=== PATIENT | male | born 1975 | race Caucasian/White ===

== ENCOUNTER 2024-11-16 06:24 | Day surgery (SDC) | payer BC, SELFPAY | END 2024-11-16 15:13 | disposition home or self-care (01) | LOC: GI 06:24 | PROVIDERS: ATTENDING PHYSICIAN Internal Medicine; FAMILY PHYSICIAN Nurse Practitioner Family | DX: Z12.11 Encounter for screening for malignant neoplasm of colon (principal); K64.8 Other hemorrhoids; D64.9 Anemia, unspecified; I85.00 Esophageal varices without bleeding; K92.1 Melena; K44.9 Diaphragmatic hernia without obstruction or gangrene; K29.80 Duodenitis without bleeding; K22.89 Other specified disease of esophagus; K31.89 Other diseases of stomach and duodenum; D12.5 Benign neoplasm of sigmoid colon; D12.8 Benign neoplasm of rectum; K22.70 Barrett's esophagus without dysplasia; K29.50 Unspecified chronic gastritis without bleeding; K31.A0 Gastric intestinal metaplasia, unspecified | CPT/HCPCS: 45385; 45380; 43239; 88305; 88342 ==

== ENCOUNTER → 2024-12-01 12:53 | Outpatient (REF) | payer BC, SELFPAY | LOC: HWRAD 12:53 | PROVIDERS: ATTENDING PHYSICIAN Internal Medicine; FAMILY PHYSICIAN Nurse Practitioner Family; REFERRING PHYSICIAN Internal Medicine Hematology & Oncology | DX: R74.8 Abnormal levels of other serum enzymes (principal); F10.10 Alcohol abuse, uncomplicated; D64.9 Anemia, unspecified; R79.9 Abnormal finding of blood chemistry, unspecified; D53.9 Nutritional anemia, unspecified | CPT/HCPCS: 76700 ==

== ENCOUNTER 2024-12-13 06:30 | Day surgery (SDC) | payer BC, SELFPAY ==
[2024-12-13 08:37] VITALS: BP 133/81
[2024-12-13 08:46] VITALS: BMI 22.9
[2024-12-13] MEDS: NORMOSOL-R/PLASMALYTE-A 1000 IV (08:49)
[2024-12-13] MEDS: CELEBREX 200 MG PO (08:49)
[2024-12-13] MEDS: TYLENOL 1000 MG PO (08:49)
[2024-12-13] MEDS: LYRICA 150 MG PO (08:49)
[2024-12-13 09:52] LABS: INR 1.04; PT 14.2 Sec (11.4-14.6)
[2024-12-13 09:53] LABS: APTT 31.9 Sec (23.4-35.0)
[2024-12-13 11:32] VITALS: BP 112/71
[2024-12-13 11:46] VITALS: BP 128/84
[2024-12-13 12:00] VITALS: BP 102/83
[2024-12-13 12:15] VITALS: BP 126/60
[2024-12-13 12:30] VITALS: BP 130/81
--- NOTE | 2024-12-13 14:46 | W.IMMPOSTOP ---
Addendum entered and electronically signed by Omar Jett MD 12/13/24 14:50:
updated patient in recovery room
Original Note:
Surgical Immed Post Op Note
-
Primary Surgeon: Omar Jett MD
Assisting Surgeon: None
Pre-op Diagnosis: Symptomatic internal hemorrhoids
Post-op Diagnosis: Symptomatic internal hemorrhoids
Procedure Performed: Closed hemorrhoidectomy x 1, hemorrhoidopexy x 2, suture ligation of internal hemorrhoid x 1, bilateral pudendal nerve block
Anesthesia Type: Sedation with spinal and local
Specimen / Cultures: Right anterior internal hemorrhoid
Estimated Blood Loss: 10 mL
Complications: None
Operative Findings: Partially prolapsing internal hemorrhoid in the right anterior position with skin tag and external component, performed closed hemorrhoidectomy; small to moderate internal hemorrhoid in the right posterior position, performed
hemorrhoidopexy; small left lateral internal hemorrhoid, performed hemorrhoidopexy; small left posterolateral internal hemorrhoid, performed suture ligation
--- NOTE | 2024-12-13 14:50 | OR.RPT ---
Operative Report
Operative Report
DATE OF OPERATION: 12/13/2024
SURGEON: Omar Jett MD
PREOPERATIVE DIAGNOSIS: Symptomatic internal hemorrhoids with prolapse
POSTOPERATIVE DIAGNOSIS: Symptomatic internal hemorrhoids with prolapse
OPERATION: Exam under anesthesia, closed hemorrhoidectomy x 1, suture hemorrhoidopexy x 2, suture ligation of internal hemorrhoid x 1, bilateral pudendal nerve block
ASSISTANTS:
1. None
ANESTHESIA: MAC w/ local and spinal
ESTIMATED BLOOD LOSS: 10 mL
FINDINGS:
1. Partially-prolapsing internal hemorrhoid in the right anterior quadrant associated with skin tag and external component; performed closed hemorrhoidectomy
2. Performed suture hemorrhoidopexy for right posterior and left lateral internal hemorrhoids
3. Small internal hemorrhoid in the left posterior lateral position; performed suture ligation
SPECIMENS:
1. Right anterior internal hemorrhoid
DRAINS: N/A
COMPLICATIONS: None
INDICATIONS: The patient is a 49-year-old male who developed avascular necrosis of his hip and is awaiting corrective surgery. During his workup, he was identified to have anemia and was recommended to have his hemorrhoids treated. I did explain
that hemorrhoids rarely cause anemia. However, his hemorrhoids were symptomatic and prolapsing. After a trial of nonoperative measures, his symptoms persisted. Therefore, I recommended surgery. I explained that a suture hemorrhoidopexy would be
the plan for any concerning internal hemorrhoids. However, if a hemorrhoid is too large for a suture hemorrhoidopexy, I would perform an excisional hemorrhoidectomy. The operation was discussed with the patient in detail, including the risks,
benefits and alternatives. Risks described included, but not limited to, bleeding, infection, urinary retention, damage to nearby structures such as the anal sphincter, fecal incontinence, anal stenosis, recurrence, and anesthetic risks. The patient
understood and agreed to proceed. The consent was signed and placed in the chart.
PROCEDURE IN DETAIL: The patient was taken to the operating room. Sequential compression devices were placed bilaterally. On the bed, anesthesia performed a spinal block. The patient was placed on the operating table in prone position. Sedation
was commenced without complication. Two seat belts were secured around the legs and upper back. The buttocks were taped apart. The perineum was shaved, prepped and draped in the usual fashion. A time-out was performed verifying the correct
patient, procedure, operative site, positioning, and special equipment.
Local anesthesia used was a mixture of 30 mL of 0.25% Marcaine with epinephrine, 30mL of 1% lidocaine plain and 0.6 mg of dexamethasone. 40 mL was injected perianally at the beginning of the case. The anorectal exam was performed assessing all four
quadrants of the anal canal using Hill-Gunter retractors in progressively increasing size. There was a skin tag associated with external hemorrhoid in the right anterior position. This was in the same column as an internal hemorrhoid that
demonstrates partial prolapse on withdrawal of the anoscope. There was a small to moderate internal hemorrhoid in the right posterior position without irritation or bleeding. There were 2 small internal hemorrhoids in the lateral position without
irritation or bleeding. There were no masses or proctitis.
Due to the prolapsing nature and external component, I elected to proceed with an excisional hemorrhoidectomy for the right anterior hemorrhoid. I began by grasping the hemorrhoid with 3 clamps and elevating it. The anoderm was incised immediately
around the distal aspect of the hemorrhoid. Hemostasis was achieved with electrocautery. Using Metzenbaum scissors, the hemorrhoid was carefully dissected off of the sphincter complex avoiding injury to it. A large curved clamp was placed under
the hemorrhoid, taking care to avoid clamping any sphincter. A 15 blade was used to excise the hemorrhoid off the clamp. The hemorrhoid was passed off for specimen. A 2-0 Vicryl was thrown around the pedicle and tied down, leaving a long tail.
The mucosa was reapproximated using this 2-0 Vicryl in a running fashion to the level of the dentate line. This was then run back to the pedicle in a locking fashion. The 2-0 Vicryl was tied down to the tail around the pedicle, ligating it a third
time. Another 2-0 Vicryl was used to close the defect of the anoderm in a running fashion. Hemostasis was confirmed.
I elected to proceed with suture ligation and hemorrhoidopexy of the right posterior and left lateral internal hemorrhoids. Using a Hill-Gunter retractor, the hemorrhoid was exposed. I ligated the pedicle of the hemorrhoid with a 2-0 Vicryl in a
figure-of-8 fashion, leaving the tail long. I took running mucosal bites of the hemorrhoid distally toward the dentate line, stopping 1 cm above the dentate line. I tied this down to the long tail in order to pexy the hemorrhoid. Hemostasis was
confirmed. The other hemorrhoid was ligated and pexied in a similar fashion.
For the remaining small left posterolateral internal hemorrhoid, I elected to proceed with suture ligation. I placed a [id number] 2-0 Vicryl stitch across the hemorrhoid. Hemostasis was confirmed.
The anal canal was irrigated copiously with saline, checking for hemostasis, which was ensured. The remaining 20 mL of local were injected. 5 mL was injected bilaterally for a pudendal nerve block. 10 mL was injected around the surgical site and
perianally. The smallest Hill-Gunter was used to check hemostasis once more, which was confirmed. Surgicel was placed in the anal canal prophylactically.
At this point, the procedure was complete. All needle, sponge and instrument counts were correct. The patient tolerated the procedure well and was transferred to the recovery room in stable condition with gauze dressing in place secured with silk
tape.
DICTATED BY: Omar Jett MD
== END 2024-12-13 12:53 | disposition home or self-care (01) ==
LOC: SDS 06:30
PROVIDERS: Student in an Organized Health Care Education/Training Program; ATTENDING PHYSICIAN Surgery
DX: K64.8 Other hemorrhoids (principal)
CPT/HCPCS: 46945; 85610; 85730; 88304

== ENCOUNTER 2025-01-23 06:11 | Day surgery (SDC) | payer BC, SELFPAY ==
[2025-01-23 12:55] VITALS: BMI 23.4
[2025-01-23 13:15] VITALS: BP 128/70
[2025-01-23 13:17] VITALS: BMI 23.4
== END 2025-01-23 16:20 | disposition home or self-care (01) ==
LOC: GI 06:11
PROVIDERS: ATTENDING PHYSICIAN Internal Medicine Gastroenterology
DX: K22.70 Barrett's esophagus without dysplasia (principal); K22.89 Other specified disease of esophagus; K31.A0 Gastric intestinal metaplasia, unspecified; K86.9 Disease of pancreas, unspecified; R93.3 Abnormal findings on diagnostic imaging of other parts of digestive tract; Z87.19 Personal history of other diseases of the digestive system
CPT/HCPCS: 43254; 88305

== ENCOUNTER 2025-03-01 06:17 | Day surgery (SDC) | payer BC, SELFPAY ==
[2024-09-18 14:51] LABS: Hematocrit 46.4 % (39.0-52.0); Hemoglobin 16.3 g/dL (13.0-18.0); Mean Corp Hgb Conc. 35.1 g/dL (33.0-37.0); Mean Corpuscular Volume 93.7 fL (80.0-94.0); Platelet Count 293 10^3/uL (130-400); Red Cell Dist. Width 14.1 % (11.5-14.5)
[2024-09-18 16:13] LABS: ALT (SGPT) 273 U/L (0-50); AST (SGOT) 382 U/L (17-59); Albumin 4.3 g/dl (3.5-5.0); Alkaline Phosphatase 94 U/L (38-126); Blood Urea Nitrogen 18 mg/dl (9-20); Calcium 8.9 mg/dl (8.4-10.2); Carbon Dioxide 24 mmol/L (22-30); Chloride 100 mmol/L (98-107); Glucose 185 mg/dl (70-99); Potassium 5.2 mmol/L (3.5-5.1); Sodium 136 mmol/L (135-145); Total Protein 6.0 g/dl (6.3-8.2); eGFR > 60.00
[2024-09-19 08:20] LABS: Glycohemoglobin (HgbA1c) 6.2 % (4.0-5.6)
[2024-09-19 09:07] VITALS: BMI 21.0
[2024-09-19 09:08] VITALS: BMI 21.0
--- NOTE | 2024-09-20 09:28 | VNURNOTE ---
Addendum entered by Claudine Arango RN 09/26/24 11:57:
Noted that surgery rescheduled to Oct 7. PM [facility] Intake dept updated.
Original Note:
Patient is scheduled for an elective R RACIEL on 10/03 - he is a same day patient with Dr Ryan. Spoke with patient prior to surgery. Introduced role of [facility] Liaison. Patient reports that he lives alone. His parents live next door.
He will obtain a hip kit and will use his mom's rolling walker. He stated she does not use it anymore.
PCP is Simona Mckeon
Discussed [facility] joint protocol and post surgical plans.
Reviewed that he will have VN services initially and will then start outpatient PT.
Patient selects [facility] for his home care needs and will go to Ambulatory center at for outpatient PT. Has not been scheduled yet. Advised to schedule it for the end of the surgical week/ 10/06.
Patient is in agreement with plan and states that his parents will be home with him. Advised to bring RW with him day of surgery. Referral placed in [facility].
Plan: [facility] per [facility] joint protocol 10/03 then outpt PT TBD
--- NOTE | 2024-10-17 11:07 | HPS.HSE ---
Family Physician
-
Family Physician: AZAEL Tracy
Chief Complaint
-
Avascular necrosis of right femoral head. Same-day surgery.
History of Present Illness
The patient is a 49-year-old male presenting today for avascular necrosis of the right femoral head. The patient reports significant right hip pain and instability secondary to this diagnosis. He notes that his current right hip symptoms
are greatly interfering with his activities of daily living and are overall impacting his quality of life. He has tried and failed multiple conservative treatment measures in the past for his right hip symptoms. These conservative treatment measures
include activity modification, self-directed therapeutic exercises, physical therapy, medical management with Tylenol and NSAIDs, and the application of ice and/or heat. Recent x-ray findings of the right hip demonstrated signs of osteonecrosis. He
was determined to be in need of a right total hip arthroplasty. He denies any current complaints today such as chest pain, shortness of breath, palpitations, nausea, vomiting, diarrhea, lightheadedness, dizziness, sore throat, or fever.
Medical History
Past Medical History
Past Medical History: Reports Other
Additional Past Medical History:
1. Avascular necrosis of the right femoral head.
2. PAC's, asymptomatic.
3. Chronic cough.
4. Non-insulin dependent diabetes, diet controlled, A1c 6.2.
5. GERD.
6. Hiatal hernia.
7. Esophageal varices, 18 years ago, with associated anemia, status post blood transfusion.
8. History of recurrent GI ulcers.
9. Fatty liver disease with elevated transaminases.
10. History of recurrent pancreatitis, last episode 2 years ago.
11. Hemorrhoids with intermittent rectal bleeding.
12. Peripheral neuropathy.
13. Multilevel degenerative disc disease.
14. New-onset anemia.
15. Anxiety.
16. Depression.
17. Insomnia.
18. History of recent tobacco abuse.
19. Alcohol abuse, on Naltrexone.
Past Surgical History: Reports Other
Additional Past Surgical History:
1. Right C7-T1 foraminotomy.
2. Left wrist cyst excision.
3. Oral surgery.
Social History
Tobacco: Former Smoker (He is a former one pack per day cigarette smoker who quit tobacco products altogether in early August 2024. )
Alcohol: Other (He does have a history of alcohol abuse, with his last known alcohol being 'a few days ago.' He is on Naltrexone. )
Living: Alone (in a 2nd floor apartment independently. He reportedly has 1 step into his complex and 9 stairs up to the 2nd floor. His parents who live close by will be helping him post-procedure. He is aware that someone will need to stay with him
continuously for the first 24 hours after his surgery. )
Family History
Family History: Not pertinent
Allergies / Home Medications
Allergy/Medication List:
HOME MEDICATIONS:
1. Acetaminophen 1000 mg p.o. three times a day.
2. Bupropion 300 mg p.o. daily.
3. Glucosamine one capsule p.o. twice a day.
4. Ibuprofen 400 mg p.o. every 6 hours as needed.
5. Multivitamin one tablet p.o. daily.
6. Naltrexone 50 mg p.o. daily.
7. Sertraline 50 mg p.o. daily.
8. Hydroxyzine pamoate 25 mg p.o. at bedtime.
ALLERGIES: No known allergies.
Review of Systems
-
A 12 point ROS was completed and negative except as noted: Yes
Physical Exam
Vital Signs
Blood pressure 122/80. Heart rate 74. Respirations 18. Pulse ox 100% on room air.
Height 5 feet, 5 inches, Weight 60.8 kg, BMI 21.0.
Physical Exam
General: Well Developed, Well Nourished and No Apparent Distress
HEENT: NormoCephalic, Moist mucous membranes, Atraumatic and PERRLA
Respiratory: Clear
Cardiac: Regular Rhythm
GI: Soft, Non Tender and Non Distended
Musculoskeletal: Other (Right hip and lower extremity: resistive active motion of the hip is 4+/5, passive abduction or adduction is pain free, posterior trochanteric region is tender to palpation. Passive range of motion is mildly painful in groin
to thigh. Stinchfield's exam is mildly painful. Log roll is pain free.)
Skin: Warm and Dry
Neuro: AO x 3 and Nonfocal/grossly intact
Laboratory Results
-
DIAGNOSTIC STUDIES as of 10/17/2024: White blood cell count 7.7. Hemoglobin 11.1. Platelet count 192,000. Sodium 136. Potassium 4.7. BUN 26. Creatinine 0.7. Glucose 170. Hemoglobin A1c 6.2. Calcium 8.9. AST 66. ALT 86. Albumin 3.8. Blood type B
positive. MRSA screen negative.
EKG 09/18/2024: Normal sinus rhythm. Septal infarct pattern.
Impression/Plan
-
CLEARANCES:
1. Primary medical, AZAEL Holt, pending.
Primary medical phone number: [phone].
2. Cardiology, Dr. Ward Ferris, cleared.
3. Gastroenterology per primary care, pending.
4. Dental pending.
IMPRESSION/PLAN:
1. Avascular necrosis of the right hip in need of a right total hip arthroplasty by Dr. Neo Ryan on 11/02/2024. The benefits and risks of the procedure have been explained to the patient. The patient understands these risks and wishes to
proceed.
2. Deep vein thrombosis prophylaxis: Aspirin 81 mg p.o. twice a day and bilateral venous compression devices. Aspirin dosing has been reduced due to the patient's history of recurrent GI ulcers. Daily Protonix will be prescribed in the hopes of
preventing ulcers while on Aspirin therapy.
3. History of alcohol abuse: The patient does take Naltrexone daily due to this. This will be held 72 hours prior to his procedure per his prescriber. He will not resume this medication until off all post-surgical narcotics.
4. Fatty liver disease with elevated transaminases: The minimization of alcohol and Tylenol were discussed pre-operatively given this diagnosis.
5. Elevated infection risk: The patient is considered to be at an elevated risk of post-surgical infection due to his recent tobacco history. He was applauded on his efforts in quitting tobacco prior to his surgery. He will be prescribed Cefadroxil
post-surgery for continued joint prophylaxis. Probiotic use will be highly encouraged while on this antibiotic.
6. Post-operative bowel regimen: The patient will purchase Colace and Senokot for post-surgical use. These will be taken twice a day post-procedure, regardless of oral intake, until he is having regular bowel movements. Adequate hydration, the
minimization of opioids, and early mobility as tolerated were also discussed pre-operatively.
Patient's phone number: [phone].
Patient's contact (Thee Yeager - Father): [phone].
The patient's procedure will be postponed due to new-onset anemia. His hemoglobin dropped from 16.3 in August 2024 to now 11.1. Per primary care, he will need gastroenterology work-up and clearance prior to proceeding with his right total hip
arthroplasty. He has called to make an appointment. Of note, he was advised by primary in July 2024 to schedule a colonoscopy. Unfortunately, the patient never followed through with this request.
[2024-10-17 11:42] LABS: Hematocrit 34.2 % (39.0-52.0); Hemoglobin 11.1 g/dL (13.0-18.0); Mean Corp Hgb Conc. 32.5 g/dL (33.0-37.0); Mean Corpuscular Volume 100.9 fL (80.0-94.0); Platelet Count 192 10^3/uL (130-400); Red Cell Dist. Width 16.4 % (11.5-14.5)
[2024-10-17 12:09] LABS: ALT (SGPT) 86 U/L (0-50); AST (SGOT) 66 U/L (17-59); Albumin 3.8 g/dl (3.5-5.0); Alkaline Phosphatase 203 U/L (38-126); Blood Urea Nitrogen 26 mg/dl (9-20); Calcium 8.9 mg/dl (8.4-10.2); Carbon Dioxide 25 mmol/L (22-30); Chloride 106 mmol/L (98-107); Estimated Creatinine Clearance 111 ml/min; Glucose 170 mg/dl (70-99); Potassium 4.7 mmol/L (3.5-5.1); Sodium 136 mmol/L (135-145); Total Protein 5.7 g/dl (6.3-8.2); eGFR > 60.00
--- NOTE | 2024-10-17 13:16 | CM ---
CM reviewed medical records. CM spoke with patient via live telephone. Patient does not have a history of VN or SNF. Patient has crutches for ambulation. Patient is active with his PCP. Patient has medication coverage. Patient's family will provide
support post operatively.
PLAN: home SDS, with [facility].
[2024-10-18 15:49] VITALS: BMI 21.0
--- NOTE | 2024-11-01 11:32 | VNURNOTE ---
Addendum entered by Claudine Arango RN 02/08/25 15:20:
Chart reviewed. Patient's SDS surgery re-scheduled for Mar 01. PM-[facility] Intake updated. Referral in [facility] updated.
Original Note:
Chart reviewed. Patient's SDS surgery re-scheduled for Nov 30. PM-[facility] Intake updated.
--- NOTE | 2024-12-13 11:39 | W.IMMPOSTOP ---
Addendum entered and electronically signed by Omar Jett MD 12/13/24 14:49:
disregard this note, entered in wrong acct#
Addendum entered and electronically signed by Omar Jett MD 12/13/24 13:20:
Updated patient in recovery room
Original Note:
Surgical Immed Post Op Note
-
Primary Surgeon: Omar Jett MD
Assisting Surgeon: None
Pre-op Diagnosis: symptomatic internal hemorrhoids
Post-op Diagnosis: symptomatic internal hemorrhoids
Procedure Performed: closed hemorrhoidectomy x1, hemorrhoidopexy x2, suture ligation of internal hemorrhoid x1, b/l pudendal nerve block
Anesthesia Type: Spinal with sedation and local
Specimen / Cultures: Right anterior internal hemorrhoid
Estimated Blood Loss: 10mL
Complications: none
Operative Findings: partially prolapsing internal hemorrhoid in the right anterior position with skin tag and external component, performed closed hemorrhoidectomy; small to moderate internal hemorrhoid in the right posterior position, performed
hemorrhoidopexy; small left lateral internal hemorrhoid, performed hemorrhoidopexy; small left posterolateral internal hemorrhoid, performed suture ligation
[2025-02-08 14:01] VITALS: BMI 23.4
[2025-02-08 14:34] LABS: Hematocrit 37.6 % (39.0-52.0); Hemoglobin 12.4 g/dL (13.0-18.0); Mean Corp Hgb Conc. 33.0 g/dL (33.0-37.0); Mean Corpuscular Volume 86.4 fL (80.0-94.0); Platelet Count 228 10^3/uL (130-400); Red Cell Dist. Width 14.7 % (11.5-14.5)
[2025-02-08 14:52] VITALS: BMI 23.4
[2025-02-08 15:37] LABS: ALT (SGPT) 59 U/L (0-50); AST (SGOT) 39 U/L (17-59); Albumin 4.6 g/dl (3.5-5.0); Alkaline Phosphatase 93 U/L (38-126); Blood Urea Nitrogen 12 mg/dl (9-20); Calcium 10.0 mg/dl (8.4-10.2); Carbon Dioxide 23 mmol/L (22-30); Chloride 102 mmol/L (98-107); Estimated Creatinine Clearance > 125 ml/min; Glucose 288 mg/dl (70-99); Potassium 4.7 mmol/L (3.5-5.1); Sodium 134 mmol/L (135-145); Total Protein 6.9 g/dl (6.3-8.2); eGFR > 60.00
[2025-02-09 09:20] LABS: Glycohemoglobin (HgbA1c) 7.7 % (4.0-5.9)
--- NOTE | 2025-02-09 14:26 | CM ---
Addendum entered by Lani Steven RN 02/09/25 14:28:
Confirmed visit address as:
[address] [place] [address]
[address]
[place] [address]
Original Note:
Demographics: lives in an apartment
Living situation: Lives in an apartment, father is available for support
Support Person Post Operatively:Father
History of
VN: No
SNF: No
Outpatient: [facility] appointment made for 03/05
Has patient purchased required equipment: yes
PCP: Linda
Pharmacy: [facility]
Post Operative Discharge Plan: SDS, with VN
[2025-03-01] VITALS (15 sets, daily range): BP systolic 118–156; BP diastolic 68–92; PULSE 72; O2SAT 98
[2025-03-01] MEDS: TYLENOL 650 MG PO (09:16)
[2025-03-01] MEDS: CELEBREX 200 MG PO (09:17)
[2025-03-01] MEDS: NORMOSOL-R/PLASMALYTE-A 1000 IV (09:20)
[2025-03-01 10:58] LABS: Glucose - Point of Care 112 mg/dl (70-99)
--- NOTE | 2025-03-01 12:18 | W.DS.TRANS ---
DC Summary - Senior Case Manager
-
Discharge Instructions:
Sleep Apnea Risk Intermediate
Discharge Diagnosis/Procedures Avascular necrosis of right femoral head s/p
right RACIEL w/ Dr Ryan 03/01/25
Diet Diabetic, Carb Controlled
Additional Diets Adequate hydration, minimize opioids, and wear
TEDs stockings to prevent low blood pressure/
dizziness.
Activity As tolerated,With Walker
Driving Restrictions Not until seen by your Dr
Bathing Restrictions OK to Shower
Other Services PT,VN
Wound Care Leave dressing on until seen by surgeon's office
for follow-up.
Instructions:
Stand-Alone Forms: SDS Total Hip and Knee D/C
Changes to Home Medications: Yes
Discharge Medications:
DC Medications w/original date entered in [employer]
acetaminophen 500 mg capsule 1,000 mg PO TID PRN Pain 03/09/22
bupropion HCl 300 mg 24 hr tablet, extended release 300 mg PO DAILY 09/15/24
sertraline 50 mg tablet 75 mg PO DAILY 09/15/24
hydroxyzine pamoate 25 mg capsule 25 mg PO HS 10/17/24
potassium 1 cap PO DAILY 12/07/24
trazodone 50 mg tablet 50 mg PO PRN PRN pain 12/07/24
pantoprazole 40 mg tablet,delayed release 40 mg PO DAILY 01/23/25
Benefiber (guar gum) 1 unit PO HS 02/06/25
Glucosamine Msm 1 tab PO DAILY 02/06/25
Held on 03/01/25. Instructions: Resume on 03/09/25.
Protein Smoothie 1 unit PO DAILY 02/06/25
Super C With Vit D And Zinc 1 tab PO DAILY 02/06/25
magnesium 1 tab PO DAILY 02/06/25
multivitamin 1 tab PO DAILY 02/06/25
Held on 03/01/25. Instructions: Resume on 03/09/25.
vitamin B complex 1 tab PO DAILY 02/06/25
cefadroxil 500 mg capsule 500 mg PO BID #14 caps 02/08/25
celecoxib 100 mg capsule (Celebrex) 100 mg PO DAILY PRN breakthrough pain #10 caps 02/08/25
ondansetron HCl 4 mg tablet 4 mg PO Q6H PRN nausea and vomiting #30 tabs 02/08/25
oxycodone 5 mg tablet 5 - 10 mg (1 - 2 x 5 mg) PO Q6H PRN moderate-severe pain #30 tabs 02/08/25
pregabalin 75 mg capsule 75 mg PO BID nerve pain #15 caps 02/08/25
metformin 500 mg tablet 500 mg PO QPM 02/19/25
Saccharomyces boulardii 250 mg capsule (Florastor) 250 mg PO BID #1 cap 03/01/25
aspirin 81 mg tablet 81 mg PO BID Blood clot prevention/tx #1 tab 03/01/25
docusate sodium 100 mg capsule (Colace) 100 mg PO BID stool softner #1 cap 03/01/25
magnesium hydroxide 400 mg/5 mL oral suspension (Milk of Magnesia) 30 ml PO HS PRN constipation #1 mL 03/01/25
sennosides 8.6 mg tablet (Senokot) 17.2 mg (2 x 8.6 mg) PO BID laxative #2 tabs 03/01/25
Home Medication Changes
cefadroxil 500 mg capsule 500 mg PO BID #14 caps 02/08/25
celecoxib 100 mg capsule (Celebrex) 100 mg PO DAILY PRN breakthrough pain #10 caps 02/08/25
ondansetron HCl 4 mg tablet 4 mg PO Q6H PRN nausea and vomiting #30 tabs 02/08/25
oxycodone 5 mg tablet 5 - 10 mg (1 - 2 x 5 mg) PO Q6H PRN moderate-severe pain #30 tabs 02/08/25
pregabalin 75 mg capsule 75 mg PO BID nerve pain #15 caps 02/08/25
metformin 500 mg tablet 500 mg PO QPM 02/19/25
Saccharomyces boulardii 250 mg capsule (Florastor) 250 mg PO BID #1 cap 03/01/25
aspirin 81 mg tablet 81 mg PO BID Blood clot prevention/tx #1 tab 03/01/25
docusate sodium 100 mg capsule (Colace) 100 mg PO BID stool softner #1 cap 03/01/25
magnesium hydroxide 400 mg/5 mL oral suspension (Milk of Magnesia) 30 ml PO HS PRN constipation #1 mL 03/01/25
sennosides 8.6 mg tablet (Senokot) 17.2 mg (2 x 8.6 mg) PO BID laxative #2 tabs 03/01/25
Pending Results: No
[2025-03-01 13:05] LABS: Glucose - Point of Care 135 mg/dl (70-99)
[2025-03-01 14:50] LABS: Glucose - Point of Care 227 mg/dl (70-99)
[2025-03-01] MEDS: TYLENOL 1000 MG PO (15:21)
[2025-03-01] MEDS: ANCEF 5 IV (15:22)
[2025-03-01] MEDS: ROXICODONE 5 MG PO (15:33)
--- NOTE | 2025-03-01 16:53 | OR.RPT ---
Operative Report
Operative Report
Orthopaedic Surgery Operative Note
DATE OF OPERATION: 03/01/2025
PREOPERATIVE DIAGNOSES: Osteonecrosis, right hip
POSTOPERATIVE DIAGNOSES: Same
OPERATION PERFORMED: Right total hip arthroplasty.
SURGEON: Neo Ryan MD
ANGIOGRAPHER: Thomas Corral PA-C who assisted with patient positioning and retraction
ANESTHESIA: Spinal
COMPLICATIONS: None.
ESTIMATED BLOOD LOSS: 50 mL.
DRAINS: None
SPECIMEN: None
FINDINGS: Advanced articular cartilage wear on the femoral head and acetabulum.
IMPLANTS:
Biomet G7 Acetabular Shell, cluster hole, size 54
Biomet G7 Highly Crosslinked PE Liner, neutral
Alex M/L Taper femoral stem, size 12.5 with reduced neck length and standard offset
Biolox Ceramic Head, size 40mm +0
INDICATIONS: The patient presented to my office with debilitating right hip pain due to osteonecrosis of femoral head. We reviewed the natural history of this problem, as well as the risks, benefits, and alternatives of various treatment options.
The patient exhausted all nonoperative treatment options and wished to proceed with hip replacement surgery. The patient understood the risks which included, but were not limited to, bleeding, infection, failure to relieve pain, more pain than
preop, damage to blood vessels and nerves, need for reoperation, mechanical failure of the implants, wound healing problems, stiffness, instability, blood clot, pulmonary embolism, myocardial infarction, pneumonia, arrhythmia, CVA, and . The
patient accepted these risks and wished to proceed. All questions were answered, and informed consent was obtained.
PROCEDURE IN DETAIL: The patient was identified in the preoperative holding area. The right hip was identified as the operative site. The patient was taken in the operating room and transferred to the operative table. Spinal anesthesia was
performed. IV antibiotics and tranexamic acid were administered. The patient was placed in the lateral position with Stulberg hip positioners. Axillary roll was placed. The down leg was well padded. All bony prominences were well padded. The
operative limb was prepped and draped in the usual sterile fashion.
Time out was performed. A posterolateral approach to the hip was used. The skin incision was centered over the greater trochanter. This was taken down sharply through subcutaneous tissues. Meticulous hemostasis was achieved throughout the case with
electrocautery. We split the fascia robin in line with skin incision. I split the gluteus marty bluntly. We cauterized all crossing vessels as we split it. I palpated the sciatic nerve and made sure it was well posterior in the operative field. It
was protected throughout the case.
I performed a partial bursectomy to identify the short external rotators. The gluteus medius and minimus were identified and retracted anteriorly. I incised the piriformis tendon and conjoint tendon at their insertions. These were tagged for later
repair. I then performed a trapezoidal capsulotomy. The edges were tagged for later repair. I referenced the cut edge of the capsular flap to 2 fixed points on the greater trochanter for assistance with recreation of limb length and offset. I then
dislocated the hip posteriorly. I performed a femoral neck osteotomy approximately 10 mm above the lesser trochanter, as per preoperative templating. The femoral head measured 49 mm in outer diameter. The distance between neck cut and the center of
femoral head was 40. I placed a curve hohmann retractor over the anterior lip of the acetabulum between the labrum and the anterior hip capsule. A second retractor was placed inferiorly just distal to the transverse acetabular ligament.
Circumferential view of the acetabulum was achieved. I incised the labrum and pulvinar with electrocautery. I started with a 49 mm reamer and reamed down to the medial wall. I then sequentially reamed up to a 53mm reamer. This gave a nice bed of
bleeding bone with excellent column support anteriorly and posteriorly. I impacted the acetabular shell in approximately 40 degrees of abduction and 20 degrees of anteversion. I matched the anteversion of the transverse acetabular ligament. I also
made sure that the anterior rim of the socket was not proud of the anterior wall to minimize the chance of iliopsoas tendinitis. I confirmed the cup was well-seated. I then impacted a neutral liner and confirmed it was well seated with the locking
mechanism.
On the femoral side, I use a box osteotome to open the proximal starting point. I found the canal with a Charnley awl and a lateralizing reamer. I then used the Alex M/L taper broaches sequentially to prepare the femoral canal. The size 12.5 came
to a stop at the desired level and had excellent axial and rotational stability. We trialed with a trial ball head. The hip was taken through a complete range of motion. It was noted to be stable in extension without impingement. It was stable in
the position of sleep and in flexion with internal rotation. The limb length and offset were checked compared to the capsular flap and was appropriate. The measured length between the neck cut and center of the trial femoral head was 42.5mm.
I removed the trials. I impacted the femoral implant to match the [place] version. It had excellent axial and rotational stability. Trial ball head was placed, and I reduced the hip and took the hip through range of motion. There was no impingement
in external rotation and extension. Position of sleep was stable. At 90 degrees of flexion and slight adduction, the hip could be internally rotated to 90 degrees with no subluxation. I palpated the sciatic nerve, which was tension free and
unharmed. Based on our capsular flap measurement, we had restored the offset and leg length. The trial ball head was removed, and the final ball head was impacted onto a clean and dry Crowley taper. The hip was reduced.
A dilute betadine soak was performed for approximately 3 minutes, and then the hip was copiously irrigated. I repaired the capsule, piraformis, and conjoint tendon with #2 Ethibond to drill holes in the greater trochanter. Local anesthetic was
injected. The fascia robin was closed with #1 PDS in running fashion. The subcutaneous tissues were closed with 2-0 monofilament in running fashion. The skin was reapproximated with 3-0 monofilament subcuticular suture. I placed a skin glue dressing
followed by a Mepilex Ag dressing. The patient awoke from anesthesia without difficulty. Sponge and instrument counts were correct x2 at the end of the case.
I was present and participated in the entire procedure. The patient was sent to the recovery room in stable condition.
Rachid Ryan MD
== END 2025-03-01 16:37 | disposition home health service (06) ==
LOC: SDS 06:17
PROVIDERS: ATTENDING PHYSICIAN Orthopaedic Surgery; FAMILY PHYSICIAN Nurse Practitioner Family; OTHER PHYSICIAN Physician Assistant; REFERRING PHYSICIAN Student in an Organized Health Care Education/Training Program
DX: M87.9 Osteonecrosis, unspecified (principal); M16.11 Unilateral primary osteoarthritis, right hip
CPT/HCPCS: 27130; C1776; C1713; 36415; 73502; 80053; 82962; 83036; 85027; 86850; 86900; 86901; 87070; 93005; 97116; 97162

== ENCOUNTER 2025-03-23 07:30 | Outpatient (RCR) | payer BC, SELFPAY | END 2025-03-23 23:59 | disposition home or self-care (01) | LOC: RPT 07:30 | PROVIDERS: ATTENDING PHYSICIAN Orthopaedic Surgery; FAMILY PHYSICIAN Nurse Practitioner Family | DX: Z47.1 Aftercare following joint replacement surgery (principal); Z73.6 Limitation of activities due to disability; M62.81 Muscle weakness (generalized); M25.551 Pain in right hip; R26.89 Other abnormalities of gait and mobility; Z96.641 Presence of right artificial hip joint | CPT/HCPCS: 97110; 97162 ==